=== PATIENT | male | born 1970 ===

== ENCOUNTER 2016-07-27 06:37 | Emergency (ER) | payer SELFPAY ==
[2016-07-27] MEDS ORDERED: Sodium Chloride 0.9% 1,000 ML IV ONE (07:06)
[2016-07-27 07:23] LABS: BASO # 0.1 K/uL (0.0-0.2); EOS # 0.1 K/uL (0.0-0.7); EOS % 1.3 % (0.0-4.0); HEMATOCRIT 48.6 % (35.0-51.0); LYMPH # 3.9 K/uL (1.0-4.3); LYMPH % 43.3 % (20.0-40.0); MEAN CELL VOLUME 97.9 fL (80.0-94.0); MEAN CORPUSCULAR HEMOGLOBIN 33.2 pg (27.0-31.0); MEAN CORPUSCULAR HGB CONC 33.9 g/dL (33.0-37.0); MEAN PLATELET VOLUME 8.7 fL (7.2-11.7); MONO # 0.6 K/uL (0.0-0.8); MONO % 6.6 % (0.0-10.0); NRBC % 0.1 % (0.0-2.0); RED CELL DISTRIBUTION WIDTH 12.9 % (11.5-14.5)
[2016-07-27 07:31] LABS: CHLORIDE 107 mmol/L (98-107)
[2016-07-27] MEDS ORDERED: Sodium Chloride 0.9% 1,000 ML ONE (07:31)
[2016-07-27 07:32] LABS: POTASSIUM 3.8 mmol/L (3.6-5.2); SODIUM 142 mmol/L (132-148)
[2016-07-27 07:34] LABS: ALB/GLOB RATIO 1.4 (1.0-2.1); AST/SGOT 64 U/L (17-59); BLOOD UREA NITROGEN 9 mg/dL (9-20); CARBON DIOXIDE 20 mmol/L (22-30); GFR AFRICAN-AMERICAN > 60; TOTAL PROTEIN 7.3 g/dL (6.3-8.3)
[2016-07-27 07:35] LABS: ALKALINE PHOSPHATASE 98 U/L (38-126); ALT/SGPT 65 U/L (21-72); CALCIUM 8.3 mg/dl (8.6-10.4); GLUCOSE,RANDOM 174 mg/dL (75-110)
[2016-07-27 07:52] LABS: ALCOHOL SERUM 278 mg/dl (0-10)
[2016-07-27] MEDS ORDERED: Sodium Chloride 0.9% 500 ML IV ONE ×2 (08:57→09:16)
--- NOTE | 2016-07-27 09:14 | C.PDOC ---
History Of Present Illness 46 yr old male presents to the ER stating " not feeling well". Patient reports he has been drinking heavily for the past 1 week ever since his son mother dies in [place]. Patient states normally he does not drink daily. Admits to history of suicidal ideation in the past. Currently, patient denies SI, HI, hallucinations, fever, chest pain, SOB, nausea, vomiting, abdominal pain, dysuria, weakness or numbness. Time Seen by Provider: 07/27/16 07:10 Chief Complaint (Nursing): Medical Clearance History Per: Patient History/Exam Limitations: no limitations Onset/Duration Of Symptoms: Days (1 week) Current Symptoms Are (Timing): Still Present Past Medical History Reviewed: Historical Data, Nursing Documentation, Vital Signs Vital Signs: Last Vital Signs Temp 98.1 F 07/27/16 10:32 Pulse 77 07/27/16 10:32 Resp 18 07/27/16 10:32 BP 144/84 07/27/16 10:32 Pulse Ox 98 07/27/16 10:32 Surgical History: Cholecystectomy Family History: States: No Known Family Hx - Social History Hx Alcohol Use: Yes Hx Substance Use: Yes - Immunization History Hx Influenza Vaccination: No Hx Pneumococcal Vaccination: No Review Of Systems Except As Marked, All Systems Reviewed And Found Negative. Constitutional: Positive for: Other ((+) "Not feeling well"). Negative for: Fever Cardiovascular: Negative for: Chest Pain Respiratory: Negative for: Shortness of Breath Gastrointestinal: Negative for: Nausea, Vomiting, Abdominal Pain Genitourinary: Negative for: Dysuria Neurological: Negative for: Weakness, Numbness Psych: Negative for: Suicidal ideation Physical Exam - Physical Exam Appears: Well, Non-toxic, No Acute Distress Skin: Warm, Dry, No Rash Head: Atraumatic, Normacephalic Oral Mucosa: Moist Chest: Symmetrical, No Tenderness Cardiovascular: Rhythm Regular, No Murmur Respiratory: Normal Breath Sounds, No Rales, No Rhonchi, No Wheezing Gastrointestinal/Abdominal: Normal Exam, Soft, No Tenderness, No Guarding, No Rebound Extremity: Normal ROM, No Swelling Neurological/Psych: Oriented x3, Normal Speech, Normal Motor ED Course And Treatment - Laboratory Results Result Diagrams: 07/27/16 07:20 07/27/16 07:20 O2 Sat by Pulse Oximetry: 97 Progress Note: Patient was seen and evaluated by the Crisis team. Patient is given referral for an outpatient behavioral follow up. Medical Decision Making Medical Decision Making: PLAN: * Alcohol Serum * Drug Screen * Lipase * CBC * CMP * Pepcid IVP * Zofran IVP * Sodium Chloride IV 9:45am: Patient feeling better. Patient to be discharged with follow up instructions. Disposition - Disposition Referrals: [facility] [Outside] [facility] [Outside] Disposition: HOME/ ROUTINE Disposition Time: 09:15 Condition: IMPROVED Additional Instructions: Thank you for letting us take care of you today. Your provider was Dr. Gaines. You were treated for acute alcohol abuse. The emergency medical care you received today was directed at your acute symptoms. If you were prescribed any medication, please fill it and take as directed. It may take several days for your symptoms to resolve. Return to the Emergency Department if your symptoms worsen, do not improve, or if you have any other problems. Please contact your doctor or call one of the physicians/clinics you have been referred to that are listed on the Patient Visit Information form that is included in your discharge packet. Bring any paperwork you were given at discharge with you along with any medications you are taking to your follow up visit. Our treatment cannot replace ongoing medical care by a primary care provider (PCP) outside of the emergency department. Thank you for allowing the [facility] team to be part of your care today. Follow up with the clinic for outpatient care and use the follow up given to you by our psychiatric team for additional follow up. Instructions: At-Risk Alcohol Use (ED) - Clinical Impression Clinical Impression: Alcohol intoxication, Pancreatitis - Scribe Statement The provider has reviewed the documentation as recorded by the Joshua [facility] Provider Attestation: All medical record entries made by the Joshua were at my direction and personally dictated by me. I have reviewed the chart and agree that the record accurately reflects my personal performance of the history, physical exam, medical decision making, and the department course for this patient. I have also personally directed, reviewed, and agree with the discharge instructions and disposition.
[2016-07-27 10:39] VITALS: BP 144/84; PULSE 77; RESP 18; TEMP 98.1
[2016-07-27 18:53] VITALS: O2SAT 97
== END 2016-07-27 10:41 | disposition home or self-care (01) ==
LOC: C.ER 06:37
DX: F10.129 Alcohol abuse with intoxication, unspecified (principal); Y90.8 Blood alcohol level of 240 mg/100 ml or more; K85.90 Acute pancreatitis without necrosis or infection, unspecified
CPT/HCPCS: 80053; 83690; 85025; 96361; 96374; 96375; 99285; G0480; J2405; J7040

== ENCOUNTER 2017-08-13 09:54 | Inpatient (IN) | payer MEDICAID, OTHER ==
[2017-08-13 10:28] LABS: BASO % 0.2 % (0.0-2.0); EOS % 0.5 % (0.0-4.0); HEMOGLOBIN 15.7 g/dL (12.0-18.0); LYMPH # 3.3 K/uL (1.0-4.3); LYMPH % 30.8 % (20.0-40.0); MEAN CELL VOLUME 98.6 fL (80.0-94.0); MEAN CORPUSCULAR HGB CONC 35.5 g/dL (33.0-37.0); MEAN PLATELET VOLUME 8.3 fL (7.2-11.7); MONO # 0.7 K/uL (0.0-0.8); MONO % 6.2 % (0.0-10.0); NEUT # 6.8 K/uL (1.8-7.0); NEUT % 62.3 % (50.0-75.0); NRBC % 0.1 % (0.0-2.0); RBC 4.49 Mil/uL (4.40-5.90); RED CELL DISTRIBUTION WIDTH 13.2 % (11.5-14.5); WHITE BLOOD COUNT 10.8 K/uL (4.8-10.8)
[2017-08-13 10:42] LABS: URINE BILIRUBIN NEGATIVE (NEGATIVE); URINE BLOOD NEGATIVE (NEGATIVE); URINE CLARITY Clear (Clear); URINE COLOR Colorless (YELLOW); URINE GLUCOSE (UA) 3+ mg/dL (Normal); URINE LEUKOCYTE ESTERASE NEG Leu/uL (Negative); URINE PROTEIN NEGATIVE (NEGATIVE); URINE UROBILINOGEN NORMAL mg/dL (0.2-1.0)
[2017-08-13 10:48] LABS: ALB/GLOB RATIO 1.4 (1.0-2.1); ALBUMIN 4.6 g/dL (3.5-5.0); ALT/SGPT 40 U/L (21-72); AST/SGOT 31 U/L (17-59); BLOOD UREA NITROGEN 6 mg/dL (9-20); CALCIUM 9.1 mg/dl (8.6-10.4); GFR AFRICAN-AMERICAN > 60; GFR NON-AFRICAN AMERICAN > 60
[2017-08-13 10:56] LABS: BARBITURATES, UR NEGATIVE (NEGATIVE); BENZODIAZEPINES, UR NEGATIVE (NEGATIVE); OPIATES, UR NEGATIVE (NEGATIVE); PHENCYCLIDINE, UR NEGATIVE (NEGATIVE)
--- NOTE | 2017-08-13 13:12 | C.PDOC ---
History Of Present Illness 7-year-old male, presents to the emergency department requesting detox from alcohol. Patient denies any nausea/vomiting, fever, chest pain, shortness of breath, back pain or any other associated symptoms. No other complaints at this time. Time Seen by Provider: 08/13/17 10:00 Chief Complaint (Nursing): Substance Abuse History Per: Patient History/Exam Limitations: no limitations Past Medical History Reviewed: Historical Data, Nursing Documentation, Vital Signs Vital Signs: Last Vital Signs Temp 98.4 F 08/13/17 14:09 Pulse 80 08/13/17 14:09 Resp 18 08/13/17 14:09 BP 165/87 H 08/13/17 14:09 Pulse Ox 97 08/13/17 15:32 - Medical History PMH: Diabetes Denies: Seizures, Sexually Transmitted Disease Surgical History: Cholecystectomy Family History: States: No Known Family Hx - Social History Hx Alcohol Use: Yes Hx Substance Use: Yes - Immunization History Hx Tetanus Toxoid Vaccination: (unk) Hx Influenza Vaccination: Yes Hx Pneumococcal Vaccination: (unk) Review Of Systems Constitutional: Negative for: Fever, Chills Cardiovascular: Negative for: Chest Pain, Palpitations Respiratory: Negative for: Shortness of Breath Gastrointestinal: Negative for: Nausea, Vomiting, Abdominal Pain Musculoskeletal: Negative for: Back Pain Psych: Negative for: Psychosis, Suicidal ideation, Withdrawal Physical Exam - Physical Exam Appears: Non-toxic, No Acute Distress Skin: Normal Color, Warm, Dry, No Rash Head: Atraumatic, Normacephalic Eye(s): bilateral: Normal Inspection, PERRL, EOMI Nose: Normal Oral Mucosa: Moist Lips: Normal Appearing Neck: Normal ROM Cardiovascular: Rhythm Regular, No Murmur Respiratory: Normal Breath Sounds, No Accessory Muscle Use Gastrointestinal/Abdominal: Soft, No Tenderness Back: Normal Inspection Extremity: Normal ROM, No Deformity, No Swelling Neurological/Psych: Oriented x3, Normal Speech ED Course And Treatment - Laboratory Results Result Diagrams: 08/13/17 10:24 08/13/17 10:24 O2 Sat by Pulse Oximetry: 97 (RA) Pulse Ox Interpretation: Normal Progress Note: Patient was medically cleared for Detox admission. Patient needs to be evaluated by Internal medicine doctor for uncontrolled diabetis. Disposition - Disposition Disposition: HOSPITALIZED Disposition Time: 13:11 Condition: STABLE - Clinical Impression Clinical Impression: Alcohol dependence - Scribe Statement The provider has reviewed the documentation as recorded by the Scribe (Emilio Enriquez) All medical record entries made by the Scribe were at my direction and personally dictated by me. I have reviewed the chart and agree that the record accurately reflects my personal performance of the history, physical exam, medical decision making, and the department course for this patient. I have also personally directed, reviewed, and agree with the discharge instructions and disposition. Decision To Admit - Pt Status Changed To: Hospital Disposition Of: Inpatient - Admit Certification Admit to Inpatient:: After my assessment, the patient will require hospitalization for at least two midnights. This is because of the severity of symptoms shown, intensity of services needed, and/or the medical risk in this patient being treated as an outpatient. - InPatient: Physician Admission Certification: I certify that this patient requires 2 or more midnights of care for the following reason:: Detox will take more than 2 days - . Bed Request Type: Detox Admitting Physician: Wilder Worrell Patient Diagnosis: Alcohol dependence
--- NOTE | 2017-08-13 13:35 | PCM.PSYCH ---
Initial Psychiatric Evaluation - Initial Psychiatric Evaluation Type of Admission: Voluntary Legal Status: Capacity Chief Complaint (in patient's own words): "Alcohol" History of Present Illness and Precipitating Events: The patient is seen, chart reviewed and case discussed. This is a 47-year-old male, has 3 children, lives with his friends, unemployed. The patient is here for alcohol detox; drinking 6 beers and one bottle of both since his 20s. He describes significant withdrawal symptoms but no seizures. He was in detox and rehabilitation once. He smokes marijuana and 10 cigarettes a day. He also feels depressed but denies feeling suicidal or homicidal. No kareen or psychosis elicited. Past psych history: As depressed but no admissions or suicide attempts. Family psych history: Father of alcoholism. He has other relatives with alcohol and drug use. Medical history: Diabetes Current Medications: Active Medications Generic Name Dose Route Start Last Admin Trade Name Freq PRN Reason Stop Dose Admin Chlordiazepoxide 25 mg 08/13/17 14:00 Librium PO 08/18/17 13:59 Q6 DIANNA Taper Chlordiazepoxide 25 mg 08/13/17 12:53 Librium PO Q4H PRN Alcohol Withdrawal Clonidine HCl 0.1 mg 08/13/17 12:53 Catapres PO Q4H PRN Symptoms of alcohol withdrawl Folic Acid 1 mg 08/13/17 13:00 Folic Acid PO DAILY DIANNA Hydroxyzine HCl 50 mg 08/13/17 12:52 Atarax PO Q6H PRN Anxiety Ibuprofen 600 mg 08/13/17 12:52 Motrin Tab PO Q6H PRN Pain, moderate (4-7) Metformin HCl 500 mg 08/13/17 17:00 Glucophage PO BIDCC [facility] Multivitamins 1 tab 08/13/17 13:00 Hexavitamin PO DAILY DIANNA Thiamine HCl 100 mg 08/13/17 13:00 Vitamin B1 Tab PO DAILY DIANNA Trazodone HCl 100 mg 08/13/17 12:52 Desyrel PO HS PRN Insomnia Past Psychiatric History - Past Psychiatric History Previous Treatment History: None Pertinent Medical Hx (Current Medical&Sleep Prob, Allergies): Allergies Allergy/AdvReac Type Severity Reaction Status Date / Time No Known Allergies Allergy Verified 08/13/17 10:02 metFORMIN [glucOPHAGE] 500 mg PO BID #30 tab 10/11/16 Review of Systems - Psychiatric Psychiatric: Abnormal Sleep Pattern, Anxiety, Depression, Difficulty Concentrating. absent: Hallucinations, Homicidal Ideation, Paranoia, Suicidal Ideation Mental Status Examination - Personal Presentation Personal Presentation: Looks stated age - Affect Affect: Constricted - Motor Activity Motor Activity: Calm - Reliability in Providing Information Reliability in Providing Information: Good - Speech Speech: Organized - Mood Mood: Depressed, Anxious - Formal Thought Process Formal Thought Process: No Impairment - Cognitive Functions Orientation: Person, Place, Situation, Time Sensorium: Alert Attention/Concentration: Attentive Estimate of Intelligence: Average Judgement: Intact, as evidence by: Insight regarding need for hospitalization Memory: Recent intact, as evidence by: Ability to recall events of the day, Remote intact, as evidenced by: Abilit to recall sig. life events - Risk Risk: Withdrawal, Diminished functioning - Strength & Assets Inventory Strength & Assets Inventory: Cooperative - Limitations Limitations: Other DSM 5 DX - DSM 5 DSM 5 Diagnosis: Alcohol withdrawal Alcohol use d/o- severe Cannabis use d/o - severe Depressive d/o- unspecified Tobacco use d/o- mild - Recommended/Plan of Treatment Treatment Recommendations and Plan of Treatment: Taper with librium Gabapentin for augmentation As needed medications All risks, benefits and alternatives of the meds discussed, and the pt agreed and understood. Supportive tx for depressive sxs Attend groups and activities Supportive therapy and psychoeducation OK for abstinence CBT for relapse prevention Encourage MAT Refer to rehab or IOP, and self-help groups Smoking cessation with OK Nicotine patch if needed 34 min Projected ELOS: 4-5 days Prognosis: good w treatment Discharge Plan and Discharge Criteria: No wdw sxs - Smoking Cessation Smoking Cessation Initiated: Yes
--- NOTE | 2017-08-13 14:14 | PCM.BM ---
<Kandis Fan - Last Filed: 08/13/17 14:13> Treatment Plan Problems - Problems identified on initial assessmt potential for alcohol withdrawals Date Initiated: 08/13/17 Assessment reference: NA Status: Active Treatment assets and liabiliti Patient Assests: adapts well, cooperative, motivated, ADL independent, negotiates basic needs, good interpersonal skills, other Patient Liabilities: substance abuse, medical problems - Milieu Protocol Maintain good personal hygiene: daily Encourage regular showers, daily Remind patient to perform daily oral care, daily Assist patient to perform ADL's Conduct patient checks and document Observation sheet: Q15 minutes Maintain personal safety: every shift Educate patient to report safety concerns to staff, every shift Monitor environment for contraband/sharps Medication safety: Monitor for expected outcome, potential side effects: every shift, Assess barriers to learning: every shift, Assess readiness for medication education: every shift Milieu Narrative: Taper with librium Gabapentin for augmentation As needed medications All risks, benefits and alternatives of the meds discussed, and the pt agreed and understood. Supportive tx for depressive sxs Attend groups and activities Supportive therapy and psychoeducation NV for abstinence CBT for relapse prevention Encourage MAT Refer to rehab or IOP, and self-help groups Smoking cessation with NV Nicotine patch if needed 34 min Discharge/Continuing Care - Treatment Team Participation Patient/Family/SO Statement: Taper with librium Gabapentin for augmentation As needed medications All risks, benefits and alternatives of the meds discussed, and the pt agreed and understood. Supportive tx for depressive sxs Attend groups and activities Supportive therapy and psychoeducation NV for abstinence CBT for relapse prevention Encourage MAT Refer to rehab or IOP, and self-help groups Smoking cessation with NV Nicotine patch if needed 34 min <Wilder Worrell - Last Filed: 08/17/17 07:46> - Diagnosis (1) Alcohol dependence Status: Acute Interventions: 08/17/17 07:46 * Assess 7x/week regarding severity of withdrawal * Educate regarding risks, benefits, side effects and alternatives of medications * Use Motivational Interviewing for abstinence * Use CBT for relapse prevention * Medication management for withdrawal symptoms * Encourage medication assisted treatment *
[2017-08-13] MEDS: Multiple Vitamins Tab PO SCH (14:25)
[2017-08-14] MEDS: Multiple Vitamins Tab PO SCH (09:20)
--- NOTE | 2017-08-14 11:09 | PCM.PYCHPN ---
Psychiatric Progress Note - Psychiatric Progress Note Patient seen today, length of contact: 16 minutes Patient Chief Complaint: "I'm feeling better" Problems Identified/Issues Discussed: The pt is seen, chart reviewed, case discussed with staff. Support given, CBT and NE used briefly No new symptoms reported, improving slowly and needs more time No SEs from medications, risks discussed. After care discussed Medication Change: Yes (daily taper) Medical Record Reviewed: Yes Mental Status Examination - Cognitive Function Orientation: Person, Place, Situation, Time Memory: Intact Attention: WNL Concentration: WNL Association: WNL Fund of Knowledge: [facility] Decription of patient's judgement and insights: fair/fair - Mood Mood: Depressed, Anxious - Affect Affect: Constricted - Speech Speech: Appropriate - Formal Thought Process Formal Thought Process: No Impairment Psychotic Thoughts and Behaviors: denied - Suicidal Ideation Suicidal Ideation: No Plan: denied - Homicidal Ideation Homicidal Ideation: No Plan: denied Goal/Treatment Plan - Goal/Treatment Plan Need for Continued Stay: Discharge may exacerbated symptoms Progress Toward Problem(s) and Goals/Treatment Plan: Continue medications Support and psychoeducation daily Attend groups and activities daily After care planning by AURA Estimated Date of D/C: 08/19/17 - Smoking Cessation Smoking Cessation Initiated: Yes
--- NOTE | 2017-08-15 09:14 | RAD ---
HISTORY: rehab placement COMPARISON: No prior. TECHNIQUE: Chest PA and lateral FINDINGS: LUNGS: No active pulmonary disease. PLEURA: No significant pleural effusion identified. No pneumothorax apparent. CARDIOVASCULAR: Normal. OSSEOUS STRUCTURES: No significant abnormalities. VISUALIZED UPPER ABDOMEN: Normal. OTHER FINDINGS: None. IMPRESSION: No active disease.
[2017-08-15] MEDS: Multiple Vitamins Tab PO SCH (09:34)
--- NOTE | 2017-08-15 10:17 | PCM.PYCHPN ---
Psychiatric Progress Note - Psychiatric Progress Note Patient seen today, length of contact: 16 minutes Patient Chief Complaint: "I'm feeling a lot better today" Problems Identified/Issues Discussed: The pt is seen, chart reviewed, case discussed with staff. Pt reported that he is feeling a lot better. He reported improvement in his withdrawal symptoms. He is eating and sleeping good. Support given, CBT and ME used briefly No new symptoms reported, improving slowly and needs more time No SEs from medications, risks discussed. After care discussed DSM 5 Symptoms Update: alcohol use disorder, severe, dependence, Alcohol withdrawal symptoms. Medication Change: Yes (daily taper) Medical Record Reviewed: Yes Mental Status Examination - Cognitive Function Orientation: Person, Place, Situation, Time Memory: Intact Attention: WNL Concentration: WNL Association: WNL Fund of Knowledge: [facility] Decription of patient's judgement and insights: fair/fair - Mood Mood: Depressed, Anxious - Affect Affect: Constricted - Speech Speech: Appropriate - Formal Thought Process Formal Thought Process: No Impairment Psychotic Thoughts and Behaviors: denied - Suicidal Ideation Suicidal Ideation: No Plan: denied - Homicidal Ideation Homicidal Ideation: No Plan: denied Goal/Treatment Plan - Goal/Treatment Plan Need for Continued Stay: Discharge may exacerbated symptoms Progress Toward Problem(s) and Goals/Treatment Plan: Continue medications Support and psychoeducation daily Attend groups and activities daily After care planning by AURA Estimated Date of D/C: 08/19/17
[2017-08-16] MEDS: Multiple Vitamins Tab PO SCH (09:35)
--- NOTE | 2017-08-16 13:42 | PCM.PYCHPN ---
Psychiatric Progress Note - Psychiatric Progress Note Patient seen today, length of contact: 16 minutes Patient Chief Complaint: "Better today" Problems Identified/Issues Discussed: The pt is seen, chart reviewed, case discussed with staff. The pt is compliant with medications and reports no side-effects. Symptoms are improving but needs more time to stabilize. After care discussed, support and psychoeducation given. Medication Change: Yes (daily taper) Medical Record Reviewed: Yes Mental Status Examination - Cognitive Function Orientation: Person, Place, Situation, Time Memory: Intact Attention: WNL Concentration: WNL Association: WNL Fund of Knowledge: WNL - Mood Mood: Depressed, Anxious - Affect Affect: Constricted - Speech Speech: Appropriate - Formal Thought Process Formal Thought Process: No Impairment - Suicidal Ideation Suicidal Ideation: No - Homicidal Ideation Homicidal Ideation: No Goal/Treatment Plan - Goal/Treatment Plan Need for Continued Stay: Discharge may exacerbated symptoms, Severe functional impairment Progress Toward Problem(s) and Goals/Treatment Plan: Taper with librium Gabapentin for augmentation As needed medications All risks, benefits and alternatives of the meds discussed, and the pt agreed and understood. Supportive tx for depressive sxs Attend groups and activities Supportive therapy and psychoeducation [place] for abstinence CBT for relapse prevention Encourage MAT Refer to rehab or IOP, and self-help groups Smoking cessation with NM Nicotine patch if needed Estimated Date of D/C: 08/19/17
[2017-08-16 14:01] VITALS: RESP 18
[2017-08-17] MEDS: Multiple Vitamins Tab PO SCH (09:33)
[2017-08-17 10:29] VITALS: BP 135/84; PULSE 71; TEMP 98; O2SAT 98
--- NOTE | 2017-08-17 17:05 | PCM.PYCHDC ---
Mental Status Examination - Mental Status Examination Orientation: Person, Place, Situation, Time Memory: Intact Mood: Neutral Affect: Other (Appropriate) Speech: Appropriate Attention: WNL Concentration: WNL Association: WNL Fund of Knowledge: WNL Formal Thought Process: No Impairment Description of patient's judgement and insight: Fair Psychotic Thoughts and Behaviors: None Suicidal Ideation: No Current Homicidal Ideation?: No Discharge Summary - Discharge Note Reason for Hospitalization: Alcohol use disorder Cannabis use disorder Depressive disorder Laboratory Data: Abnormal Lab Results 08/17/17 06:24 POC Glucose (mg/dL) 162 H Consultations:: List each consultation separately and include: 1. Reason for request. 2. Findings. 3. Follow-up Summary of Hospital Course include:: 1. Description of specific treatment plan utilized for patients during their course of treatmen. 2. Summarize the time- course for resolution of acute symptoms and/or regressed behaviors. 3. Describe issues identified and worked on during hospitalization. 4. Describe medication utilized. 5. Describe medical problems identified and treated. 6. Reassessment of suicide risk Summary of Hospital Course: The patient is seen, chart reviewed and case discussed. This is a 47-year-old male, has 3 children, lives with his friends, unemployed. The patient is here for alcohol detox; drinking 6 beers and one bottle of both since his 20s. He describes significant withdrawal symptoms but no seizures. He was in detox and rehabilitation once. He smokes marijuana and 10 cigarettes a day. He also feels depressed but denies feeling suicidal or homicidal. No kareen or psychosis elicited. Past psych history: As depressed but no admissions or suicide attempts. During his stay in the hospital patient was treated with Librium taper and other when necessary medications. Patient tolerated treatment very well and also attended groups. With the above treatment patient started feeling better and today he was ready for discharge from the hospital. At the time of evaluation and discharge patient was awake alert oriented 3, had no delusions, no auditory or visual hallucinations, no suicidal ideations or homicidal ideations. Patient was discharged in a stable condition. Patient will go to attend [facility] in [place]. - Final Diagnosis (DSM 5) Condition upon Discharge: STABLE Disposition: HOME/ ROUTINE Prescriptions/Medication Reconciliation: metFORMIN [glucOPHAGE] 500 mg PO BIDCC #60 tab Naltrexone [Revia] 50 mg PO DAILY #30 tab traZODone [Desyrel] 100 mg PO HS PRN #30 tab PRN Reason: Insomnia - Smoking Cessation Smoking Cessation Medication prescribed: Yes - Antipsychotic Medications Pt discharged on 2 or more routine antipsychotic medications: No
== END 2017-08-17 10:15 | disposition home or self-care (01) | DRG 881 ==
LOC: C.ER 09:54 → C.7D 13:09
PROVIDERS: ADMIT Psychiatry & Neurology Psychiatry; ATTEND Psychiatry & Neurology Psychiatry
PROC: HZ2ZZZZ Detoxification Services for Substance Abuse Treatment (ICD-10-PCS; principal; 2017-08-13)
DX: F32.9 Major depressive disorder, single episode, unspecified (principal); F10.230 Alcohol dependence with withdrawal, uncomplicated; F12.90 Cannabis use, unspecified, uncomplicated; F17.210 Nicotine dependence, cigarettes, uncomplicated; F10.220 Alcohol dependence with intoxication, uncomplicated; Y90.6 Blood alcohol level of 120-199 mg/100 ml